=== PATIENT | male | born 1985 | race African-American/Black ===

== ENCOUNTER 2016-11-01 12:55 | Emergency (ER) | payer OTHER ==
[~2016-11-01] VITALS: Ht 190.5 cm; Wt 75.0 kg
[~2016-11-01 12:55] MED LIST: ALBU8.5H4 IH; CLOT60CR TP; [UNRECOGNIZED DRUG - OTHER]
[2016-11-01 12:59] VITALS: BP 155/95; PULSE 112; RESP 16; O2SAT 100
[2016-11-01 13:42] LABS: APPEARANCE,URINE HAZY (CLEAR,HAZY); COLOR,URINE YELLOW (YELLOW); OCCULT BLOOD,URINE NEGATIVE (NEGATIVE); UROBILINOGEN,URINE NORMAL (NORMAL)
[2016-11-01] MEDS ORDERED: Tetracaine 0.5% 4 mL Ophthalmic Solution BOTH_EYES ONE (14:10)
--- NOTE | 2016-11-01 14:57 | ED.REPORT ---
HPI-Dental/Mouth Prob Date of Service Nov 01, 2016 ED Provider: Ti uNnez PA-C Klaus is otherwise healthy 31-year-old male who presents with several complaints. His chief complaint is tooth pain. He states that he had an upper right molar extracted approximately one month ago. He complains of stinging pain that causes him to have a global pounding headache daily. He reports treatment with 600 mg ibuprofen temporarily resolves the pain. Denies discharge , fever, abdominal pain, vomiting, upper respiratory symptoms, eye pain, vision changes. He also is concerned about STDs. States that his girlfriend told him he had "given her something" though he cannot say what. He complains of mild crampy abdominal pain "like I am trying to flex." Which he is afraid may be caused by an STD. He denies dysuria, discharge, testicular pain, lesions. He also complains of blisters on his right foot. He states that he pops them and they produced clear fluid but return. He reports doing a lot of walking. Nursing Notes Stated Complaint: STD CHECK Chief Complaint: General Complaint Nursing Notes Reviewed: Yes Allergies: Coded Allergies: No Known Allergies (Verified Allergy, Unknown, 11/01/16) Scheduled Penicillin V Potassium (Penicillin V Potassium) 500 Mg Tablet 500 MG PO QID General Time Seen by MD: 13:50 Chief Complaint Mouth pain Past Medical History Past Medical History Healthy Patient has multiple prior presentations for urethritis, has had positive gonorrhea, positive chlamydia tests several different times Past Surgical History None Smoking History Former Smoker Social History Alcohol Use: "Social" Drug Use: THC Occupation Music DJ, 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 Head: Atraumatic, normocephalic. No mastoid tenderness. Eyes: No scleral icterus or injection. No discharge. PERRL. Vision grossly intact. IOP: 21 mmHg right, 24 mmHg left Ears: Pinna and tragus nontender with manipulation. External auditory canal patent, atraumatic and without discharge. Tympanic membrane iglesias, shiny and translucent without fluid, bulging, retraction or perforation. Hearing grossly intact. Nose: Symmetrical, nares patent without discharge. No frontal or maxillary sinus tenderness. Mouth/pharynx: Open socket site of tooth #3 with slight erythema but without discharge. No redness, swelling or fluctuance noted. Mucus membranes moist. Tonsils 2+ and symmetrical, uvula midline. Pharynx noninjected, no cobblestoning or discharge. Voice clear. Neck: No tenderness or lymphadenopathy. Trachea midline. Respiratory: Regular rate and rhythm. Breath sounds present, clear to auscultation and equal bilaterally. No respiratory distress. No increased work of breathing, speaks in complete sentences. Cardiovascular: Regular rate and rhythm, without murmur, gallop or rub. No pedal edema. Gastrointestinal: Abdomen flat and non-tender without guarding or rebound. Bowel sounds normoactive. Skin: Warm and dry. : Normal penis without lesion or discharge. Normal testes descended bilaterally without masses or tenderness. Right foot: One centimeter blister dorsal aspect of the third MTP joint Neurological: Grossly nonfocal. Psychological: Alert and oriented. Speech appropriate, linear and logical. Behavior appropriate. Initial Vital Signs Vital Signs (First) Date Time Temp Pulse Resp B/P Pulse Ox O2 Delivery O2 Flow Rate FiO2 11/01/16 12:59 36.3 112 16 155/95 100 Room Air Initial VS: Reviewed, Vital signs abnormal (tachycardia) Interpretation & Diagnostics Lab Results Interpretation Test 11/01/16 13:18 11/01/16 13:25 Hold Urine Received (Received) Urine Color Yellow (YELLOW) Urine Appearance Hazy (CLEAR,HAZY) Urine pH 6.0 (5.0-8.0) Urine Specific [place] 1.020 (1.003-1.035) Urine Protein Negativemg/dL (NEG,TRACE) Urine Glucose (UA) Negativemg/dL (NEGATIVE) Urine Ketones Negativemg/dL (NEGATIVE) Urine Occult Blood Negative (NEGATIVE) Urine Nitrite Negative (NEGATIVE) Urine Bilirubin Negative (NEGATIVE) Urine Urobilinogen Normalmg/dL (NORMAL) Urine Leukocyte Esterase Negative (NEGATIVE) Urine RBC 0-2/hpf (0-2) Urine WBC 0-5/hpf (0-5) Urine Epithelial Cells Occasional/hpf (NONE-MOD) Urine Crystals None seen (NONE SEEN) Urine Bacteria None/hpf (NONE-FEW) Urine Hyaline Casts None/lpf (NONE) Urine Granular Casts None seen (NONE SEEN) Urine Waxy Casts None seen (NONE SEEN) Urine Red Blood Cell Casts None seen (NONE SEEN) Urine White Blood Cell Casts None seen (NONE SEEN) Urine Mucus Present (None Seen) Urine Trichomonas None seen (NONE SEEN) Urine Yeast None (NONE SEEN) Urinalysis Comment None Urine Culture Reflexed Not indicated Re-Eval/Medical Decision Med Decision/Clinical Course I discussed this case with Dr. Gao 31-year-old male with several complaints including right upper dental pain, concern for STDs and blisters on his feet. Patient reports having a tooth removed in his right upper jaw approximately one month ago. Complaining of pain since then as well as daily headaches. Treats with ibuprofen for temporary relief. Examination reveals a socket with a slight amount of injection but no obvious discharge, swelling, fluctuance. There is a reasonable chance of infection in the socket, and I provided a prescription for penicillin. Advised veit-nmg-maawqcg analgesia. Check intraocular pressure of concern for glaucoma that as I was not completely satisfied with dental infection as a cause for his headaches. I found intraocular pressure of 21 mmHg in his right eye in 24 mmHg in his left eye. This appears to be nicely finding is he has no vision changes or eye pain. I do not believe this is immediately dangerous however I did provide him with phone number for ophthalmology follow-up. Patient's history is concerning for potential for STD infection. He also states that his girlfriend accused him of giving her something. He is unsure what and he describes no symptoms consistent with hepatitis, chlamydia, gonorrhea, herpes. Urinalysis reveals no indication of urinary tract infection. He wishes to be treated immediately however. I explained that I did not know what I would be treating him for that and more prudent course would be to be tested for completing treatment. Patient has appointment in the near future for counseling which he wishes to be present before. Because of that he declines testing at this time, preferring to follow up with primary care. Advised him to abstain from sex or at least use barrier contraception until he is tested. Patient has complaint of blisters on his right foot. Physical examination reveals a blister on the plantar surface of the third and TP joint of his right foot. This appears to be caused by friction rather than an abscess. Family and patient is stable safely discharged home. Given instructions for primary care follow-up, ophthalmology follow-up, emergency return precautions. 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 History and physical suggests that the socket from a recent tooth removal might not be healing properly, and there is a possibility infection. I will prescribe antibiotics to be taken for 1 week. Please follow-up with your dentist as soon as possible. The pain is best treated with 400 mg of ibuprofen (Advil, Motrin) every 6 hours , or 1000 mg of acetaminophen (Tylenol) every 6 hours. These drugs can be taken at the same time for more severe pain. I noted that the pressure in your eyes slightly higher than normal. This can indicate a condition called glaucoma. While this is not immediately dangerous to you, it should be followed. I will give you the phone number of an eye doctor ([facility], [phone]). Please contact them tomorrow to arrange follow -up. You expressed concern about the possibility of sexually transmitted diseases. you did not describe any symptoms that are immediately concerning for 60 transmitted disease, but is certainly possible that you have been exposed to one. I will give a referral for primary care provider. Please contact them tomorrow to arrange follow-up and testing. Return to emergency department for any new or worsening symptoms including high pain, changes in vision, increasing pain, fever, feeling ill. Referrals: Ethan Cardoso MD (PCP) EDSupervising Provider for APC: Bowen Gao MD copies to: Ethan Cardoso MD, Seth PA-C Nov 01, 2016 14:57
[2016-11-01] MEDS ORDERED: PENI500T PO (15:12)
== END 2016-11-01 15:41 | disposition home or self-care (01) ==
LOC: SED 12:55
DX: H40.053 Ocular hypertension, bilateral (principal); K08.89 Other specified disorders of teeth and supporting structures; R10.9 Unspecified abdominal pain; S90.821A Blister (nonthermal), right foot, initial encounter; X58.XXXA Exposure to other specified factors, initial encounter; Y93.01 Activity, walking, marching and hiking; Y92.89 Other specified places as the place of occurrence of the external cause; Y99.8 Other external cause status; Z20.2 Contact with and (suspected) exposure to infections with a predominantly sexual mode of transmission; Z87.891 Personal history of nicotine dependence
CPT/HCPCS: 81000; 96372; 99284; J1885